=== PATIENT | female | born 1940 | race Caucasian/White ===

== ENCOUNTER 2022-06-24 01:28 | Emergency (ER) | payer MEDICARE ==
[2022-06-24 03:00] VITALS: BP 118/56
== END 2022-06-24 03:00 | disposition home or self-care (01) ==
LOC: FSED 01:31
DX: R34 Anuria and oliguria (principal); I10 Essential (primary) hypertension; I50.9 Heart failure, unspecified; Z95.810 Presence of automatic (implantable) cardiac defibrillator; Z95.4 Presence of other heart-valve replacement
CPT/HCPCS: 74176; 99283